=== PATIENT | female | born 2000 | race Caucasian/White ===

== ENCOUNTER 2021-05-26 10:39 | Emergency (ER) | payer BC ==
[~2021-05-26] VITALS: Ht 157.5 cm; Wt 72.7 kg
--- NOTE | 2021-05-26 11:25 | NUR ---
Note cy in EDM - 05/26/21 at 1208 by JONN piv started, labs drawn and sent. pt continues to report dizziness, lower back pain and sweating. bs re-checked, 78. pt provided with two juices and crackers.
[2021-05-26 11:32] LABS: CLARITY,URINE CLOUDY (Clear); COLOR,URINE YELLOW (Yellow); GLUCOSE, URINE NEGATIVE (Neg); KETONES,URINE 15 mg/dl (Neg); LEUKOCYTE ESTERASE ,URINE NEGATIVE (Neg); NITRITES, URINE NEGATIVE (Neg); OCCULT BLOOD,URINE NEGATIVE (Neg); PROTEIN,URINE NEGATIVE (Neg); UROBILINOGEN,URINE 0.2 E.U/dL (0.2-1.0)
[2021-05-26 11:35] LABS: BASOPHILS % (AUTO) 0.4 % (0-1); EOSINOPHILS # (AUTO) 0.3 X10'3 (0-0.9); EOSINOPHILS % (AUTO) 3.2 % (0-6); HEMATOCRIT 33.3 % (35.0-45.0); HEMOGLOBIN 10.8 g/dl (12.0-16.0); LYMPHOCYTES # (AUTO) 1.4 X10'3 (1.1-4.8); LYMPHOCYTES % (AUTO) 18.1 % (21-51); MEAN CORPUSCULAR HEMOGLOBIN 26.2 PG (27.0-31.0); MEAN CORPUSCULAR HGB CONC 32.5 g/dL (33.0-36.5); MEAN CORPUSCULAR VOLUME 80.7 FL (78-98); MEAN PLATELET VOLUME 7.3 FL (7.4-10.4); MONOCYTES # (AUTO) 0.7 X10'3 (0-0.9); MONOCYTES % (AUTO) 9.1 % (2-12); NEUTROPHILS # (AUTO) 5.5 X10'3 (1.8-7.7); NEUTROPHILS % (AUTO) 69.2 % (42-75); PLATELET COUNT 476 X10'3 (140-440); RED BLOOD COUNT 4.13 X10'6 (4.20-5.60); RED CELL DISTRIBUTION WIDTH 14.3 % (11.5-14.5)
[2021-05-26 11:36] LABS: URINE HCG NEGATIVE (NEG)
[2021-05-26] MEDS ORDERED: NO HOME MEDS (11:36)
[2021-05-26 11:38] LABS: UA COLLECTION TYPE CLN CATCH MIDSTREAM
[2021-05-26 11:40] LABS: MUCUS STRANDS MANY /LPF (Neg); SQUAMOUS EPITHELIAL CELL,UR MANY /LPF (FEW)
[2021-05-26 11:42] LABS: RBC,URINE 0-2 /HPF (0-2)
[2021-05-26 11:44] LABS: TRANSITIONAL EPI CELLS,URINE FEW /HPF
[2021-05-26 11:45] LABS: BACTERIA,URINE 2+ /HPF (Neg)
--- NOTE | 2021-05-26 11:49 | NUR ---
Requested new urine specimen from patient per lab. Patient unable to give urine at this time.
[2021-05-26 11:50] LABS: ALANINE AMINOTRANSFERASE 14 U/L (12-78); ALBUMIN 2.8 G/DL (3.4-5.0); ALBUMIN/GLOBULIN RATIO 0.6 (1.1-1.5); ALKALINE PHOSPHATASE 75 IU/L (46-116); ANION GAP 10 (8-16); ASPARTATE AMINO TRANSFERASE 14 U/L (10-37); BILIRUBIN,TOTAL 0.1 MG/DL (0.1-1.0); BLOOD UREA NITROGEN 4 MG/DL (7-18); BUN/CREATININE RATIO 5.7 (6.6-38.0); C-REACTIVE PROTEIN 6.18 MG/DL (0.0-0.5); CALCIUM 8.4 MG/DL (8.5-10.1); CHLORIDE 103 MMOL/L (99-107); GLUCOSE 86 MG/DL (70-104); LIPASE < 50 U/L (73-393); POTASSIUM 4.1 MMOL/L (3.5-5.1); SODIUM 139 MMOL/L (135-145); TOTAL CARBON DIOXIDE 26.5 MMOL/L (24-32); TOTAL PROTEIN 7.2 G/DL (6.4-8.2); eGFR > 90 ML/MIN
[2021-05-26 15:00] VITALS: BP 119/80
[2021-05-26] MEDS ORDERED: iohexol 300mg/ml 100ml inj. ONE (15:38)
[2021-05-26 17:02] LABS: H PYLORI ANTIBODY NEGATIVE (Neg)
[2021-05-26] MEDS ORDERED: dexamethasone sod phosphate 10mg/ml inj IV STA (17:50)
[2021-05-26] MEDS ORDERED: METR-159 PO (17:57)
[2021-05-26] MEDS ORDERED: ONDA4TAB12 PO (17:57)
[2021-05-26] MEDS ORDERED: DICY10CA88 PO (17:57)
== END 2021-05-26 18:45 | disposition home or self-care (01) ==
LOC: ER 10:40
DX: K52.9 Noninfective gastroenteritis and colitis, unspecified (principal); K92.1 Melena; R11.2 Nausea with vomiting, unspecified; K59.00 Constipation, unspecified; R10.32 Left lower quadrant pain; R10.31 Right lower quadrant pain; Z72.89 Other problems related to lifestyle; Z79.2 Long term (current) use of antibiotics
CPT/HCPCS: 36415; 74177; 80053; 81001; 81025; 83690; 85025; 86140; 86677; 96374; 99285; J1100; Q9967

== ENCOUNTER 2021-06-26 08:38 | Day surgery (SDC) | payer BC ==
[~2021-06-26] VITALS: Ht 157.5 cm; Wt 67.2 kg
[~2021-06-26 08:38] MED LIST: DICY10CA88 PO; NO HOME MEDS; ONDA4TAB12 PO
[2021-06-26] MEDS ORDERED: fentaNYL/PF 50MCG/1 ML 2ML syringe ONE ×2 (08:55→09:56)
[2021-06-26] MEDS ORDERED: LIDOcaine Viscous 15ml cup ONE (08:56)
[2021-06-26] MEDS ORDERED: MIDAZolam 1 MG/ML 5ML VIAL ONE (08:56)
[2021-06-26 09:03] VITALS: BP 104/66
[2021-06-26] MEDS ORDERED: DICY10CA88 PO (09:05)
[2021-06-26] MEDS ORDERED: vit d3 PO (09:13)
[2021-06-26] MEDS ORDERED: LACT1CAP65 PO (09:13)
[2021-06-26] MEDS ORDERED: ENZY1CAP5 (09:13)
[2021-06-26] MEDS ORDERED: diphenhydrAMINE 50 mg/ml inj ONE (09:57)
[2021-06-26 10:33] VITALS: BP 103/56
[2021-06-26 10:43] VITALS: BP 102/54
[2021-06-26 10:53] VITALS: BP 94/68
[2021-06-26 11:03] VITALS: BP 95/54
== END 2021-06-26 12:03 | disposition home or self-care (01) ==
LOC: GI LAB 08:38
PROVIDERS: ATTEND Internal Medicine Gastroenterology
DX: R11.2 Nausea with vomiting, unspecified (principal); K92.1 Melena; K52.89 Other specified noninfective gastroenteritis and colitis; K51.50 Left sided colitis without complications; K29.50 Unspecified chronic gastritis without bleeding; K29.80 Duodenitis without bleeding
CPT/HCPCS: 43239; 45380; 99152; 99153; J1200; J2250; J3010; J7040; Z7512; A4620

== ENCOUNTER 2024-05-24 17:01 | Emergency (ER) | payer BC, OTHER ==
[~2024-05-24] VITALS: Ht 157.5 cm; Wt 92.8 kg
[~2024-05-24 17:01] MED LIST changes: -DICY10CA88 PO; -NO HOME MEDS; -ONDA4TAB12 PO; +[UNRECOGNIZED DRUG - OTHER] PO
[2024-05-24 17:48] VITALS: BP 128/67; PULSE 86; RESP 18; O2SAT 98
[2024-05-24 18:49] VITALS: TEMP 98.2
== END 2024-05-24 18:51 | disposition home or self-care (01) ==
LOC: ER 17:02
DX: R00.2 Palpitations (principal)
CPT/HCPCS: 93005; 99283